=== PATIENT | female | born 1965 ===

== ENCOUNTER 2016-09-27 18:59 | Emergency (ER) | payer OTHER ==
[2016-09-27] MEDS ORDERED: OXYMETAZOLINE HCL 0.05% 30 SPRAYS/BOT NS ONE (20:13)
[2016-09-27] MEDS ORDERED: ACETAMINOPHEN 500 MG TABLET ONE (20:13)
[2016-09-27] MEDS ORDERED: PREDNISONE 20 MG TABLET ONE (20:13)
== END 2016-09-27 21:29 | disposition home or self-care (01) ==
LOC: ED 18:59
DX: R05 Cough (principal); R09.81 Nasal congestion
CPT/HCPCS: 99283 ×2; A9270 ×2; J7512